=== PATIENT | female | born 1980 | race Caucasian/White ===

== ENCOUNTER 2016-08-06 21:53 | Emergency (ER) | payer OTHER ==
[~2016-08-06] VITALS: Ht 167.6 cm; Wt 95.3 kg
[2016-08-06] MEDS ORDERED: ULTRAM 50MG TAB50 MG PO (23:42)
[2016-08-06] MEDS ORDERED: IBUPROFEN 600600 M1 PO (23:42)
[2016-08-06] MEDS ORDERED: ONDANSETRON HCL4 M2 PO (23:42)
[2016-08-07 00:23] VITALS: BP 106/57
[2016-08-07] MEDS ORDERED: ADDERALL 10 MG10 MG PO (00:29)
== END 2016-08-07 00:30 | disposition home or self-care (01) ==
LOC: ER 21:53
DX: S09.90XA Unspecified injury of head, initial encounter (principal); W50.0XXA Accidental hit or strike by another person, initial encounter; Y93.68 Activity, volleyball (beach) (court); Y92.89 Other specified places as the place of occurrence of the external cause; Y99.9 Unspecified external cause status